=== PATIENT | female | born 1970 | race African-American/Black ===

== ENCOUNTER 2019-05-24 16:03 | Emergency (ER) | payer MEDICAID ==
[~2019-05-24] VITALS: Ht 157.5 cm; Wt 59.0 kg
[2019-05-24 16:11] VITALS: BP 118/86
[2019-05-24] MEDS ORDERED: TDAP [DIPH/PERTUSSIS/TET] 0.5 ML VIAL IM ONE ×2 (16:19→16:30)
[2019-05-24] MEDS ORDERED: BACITRACIN ZINC OINT PACKET 1 EA PACKET TP ONE ×2 (16:19→16:30)
== END 2019-05-24 16:33 | disposition home or self-care (01) ==
LOC: EDBD → ER 16:10
DX: S61.412A Laceration without foreign body of left hand, initial encounter (principal); Z90.710 Acquired absence of both cervix and uterus; W26.0XXA Contact with knife, initial encounter; Y93.89 Activity, other specified; Y92.89 Other specified places as the place of occurrence of the external cause; Y99.8 Other external cause status
CPT/HCPCS: 90715

== ENCOUNTER 2019-07-20 15:51 | Emergency (ER) | payer MEDICAID ==
[~2019-07-20] VITALS: Ht 149.9 cm; Wt 54.9 kg
[2019-07-20 16:06] VITALS: BP 109/71
--- NOTE | 2019-07-20 16:20 | NUR ---
AT BEDSIDE FOR EVAL.
[2019-07-20] MEDS ORDERED: ACETAMINOPHEN 325 MG TABLET PO ONE (16:30)
[2019-07-20] MEDS ORDERED: ACETAMINOPHEN 325 MG TABLET ONE (16:41)
--- NOTE | 2019-07-20 16:44 | NUR ---
Patient discharged to home in stable condition. Written and verbal after care instructions given. Patient verbalizes understanding of instruction.
== END 2019-07-20 16:45 | disposition home or self-care (01) ==
LOC: ER 15:53
DX: S00.03XA Contusion of scalp, initial encounter (principal); I10 Essential (primary) hypertension; E11.9 Type 2 diabetes mellitus without complications; Z98.890 Other specified postprocedural states; W22.8XXA Striking against or struck by other objects, initial encounter; Y93.89 Activity, other specified; Y92.59 Other trade areas as the place of occurrence of the external cause; Y99.8 Other external cause status